=== PATIENT | male | born 1970 | race Caucasian/White ===

== ENCOUNTER 2016-11-10 22:35 | Emergency (ER) | payer OTHER | END 2016-11-10 23:56 | disposition home or self-care (01) | LOC: ER 22:35 | DX: S80.02XA Contusion of left knee, initial encounter (principal); M54.2 Cervicalgia; W18.09XA Striking against other object with subsequent fall, initial encounter; Y92.009 Unspecified place in unspecified non-institutional (private) residence as the place of occurrence of the external cause; F17.210 Nicotine dependence, cigarettes, uncomplicated; I51.9 Heart disease, unspecified; Z95.1 Presence of aortocoronary bypass graft; Z79.82 Long term (current) use of aspirin; Z79.02 Long term (current) use of antithrombotics/antiplatelets; Z79.899 Other long term (current) drug therapy | CPT/HCPCS: 72125; 73564; 99283-25 ==